=== PATIENT | female | born 1945 | race Caucasian/White ===

== ENCOUNTER → 2016-09-26 | Outpatient (CLI) | payer OTHER | LOC: FIMAGING 13:49 | DX: Z12.31 Encounter for screening mammogram for malignant neoplasm of breast (principal) | CPT/HCPCS: G0202 ==

== ENCOUNTER → 2017-10-26 | Outpatient (CLI) | payer OTHER | LOC: FIMAGING 12:00 | PROVIDERS: ATTEND Internal Medicine | DX: Z12.31 Encounter for screening mammogram for malignant neoplasm of breast (principal) ==

== ENCOUNTER 2018-05-09 14:41 | Emergency (ER) | payer OTHER ==
[2018-05-09] MEDS ORDERED: diphenhydrAMINE 12.5 MG/5 ML UDCUP PO ONE (15:21)
[2018-05-09] MEDS ORDERED: diphenhydrAMINE 25 MG CAP PO ONE (15:22)
--- NOTE | 2018-05-09 16:40 | EDPHY ---
H & P Stated Complaint: hives started 2 days ago--lip tingling x 1 hour just started pred Time Seen by Provider: 05/09/18 15:50 HPI/ROS: CHIEF COMPLAINT: Facial swelling HISTORY OF PRESENT ILLNESS: 72-year-old female presents with facial swelling. Onset hives on her torso 2 days ago. She took Benadryl with some relief. However the hives recurred yesterday and she took Benadryl again. Today she saw her physician for ongoing allergic reaction. Prednisone prescribed. Immediately after taking prednisone, she developed swelling of her lips and eyelids. She took Benadryl in triage and now feels back to normal. No shortness of breath or dizziness. No prior history of similar allergic reaction. No known new foods and no new detergents or soaps. REVIEW OF SYSTEMS: complete 10 point ROS reviewed and is negative except for the noted elements in the HPI - Personal History Current Tetanus/Diphtheria Vaccine: Unsure Current Tetanus Diphtheria and Acellular Pertussis (TDAP): Unsure - Medical/Surgical History Hx Asthma: No Hx Chronic Respiratory Disease: No Hx Diabetes: No Hx Cardiac Disease: Yes Hx Renal Disease: No Hx Cirrhosis: No Hx Alcoholism: No Hx HIV/AIDS: No Hx Splenectomy or Spleen Trauma: No Other PMH: pmh- PVC's, A-Fib - Social History Smoking Status: Never smoked - Physical Exam Exam: General Appearance: Alert, pleasant and talkative Eyes: Pupils equal and round, no periorbital swelling ENT, Mouth: Mucous membranes moist, no oral swelling Neck: Normal inspection, no stridor Respiratory: Lungs are clear to auscultation, no wheezing Cardiovascular: Regular rate and rhythm Neurological: A&O, nonfocal, normal gait Skin: Few scattered hives on torso Extremities: No swelling Psychiatric: Mood and affect normal Constitutional: Initial Vital Signs Temperature (C) 36.7 C 05/09/18 14:51 Respiratory Rate 112 H 05/09/18 14:51 Blood Pressure 139/92 H 05/09/18 14:51 O2 Sat (%) 98 05/09/18 14:51 O2 Delivery Mode Room Air Allergies/Adverse Reactions: adhesive Allergy (Verified 12/10/14 07:21) Sulfa (Sulfonamide Antibiotics) Allergy (Verified 12/10/14 07:21) Home Medications: Medication Instructions Recorded Aspirin EC 05/09/18 EPINEPHrine [Epipen 0.3 MG] 0.3 mg IM ONCE #2 syr 05/09/18 predniSONE 05/09/18 Medical Decision Making ED Course/Re-evaluation: This patient presents with anaphylaxis, now better after Benadryl and prednisone. She has taken prednisone several times in the past without allergic reaction. She does not think that prednisone cause the lip swelling today, though she understands that given the timing of the onset of swelling, prednisone may have caused the swelling. Fortunately her symptoms have now resolved. She does not need treatment in the emergency department. She was given a prescription for an EpiPen and instructions on how to use it. She will return for recurrent lip swelling or any concerns. Differential Diagnosis: Differential diagnosis includes though it is not limited to laryngeal edema, bronchospasm, hypotension, angioedema. - Data Points Medications Given: Discontinued Medications Diphenhydramine HCl (Benadryl Oral Liquid) 50 mg PO EDNOW ONE Stop: 05/09/18 15:22 Last Admin: 05/09/18 15:25 Dose: 50 mg Departure - Departure Disposition: Home, Routine, Self-Care Clinical Impression: Acute anaphylaxis Qualifiers: Encounter type: initial encounter Qualified Code(s): T78.2XXA - Anaphylactic shock, unspecified, initial encounter Condition: Good Instructions: Anaphylaxis (ED) Additional Instructions: Take Claritin or Zyrtec in the morning and Benadryl at night while the rash persists. Take prednisone as prescribed. If the facial swelling recurs, use the EpiPen as directed. Return for worsening symptoms or any concerns. Referrals: Julieta Avelar MD [Primary Care Provider] - As per Instructions Prescriptions: EPINEPHrine [Epipen 0.3 MG] 0.3 mg IM ONCE #2 syr
[2018-05-09 17:09] VITALS: BP 142/92
== END 2018-05-09 17:09 | disposition home or self-care (01) ==
DX: M79.89 Other specified soft tissue disorders (principal); T78.2XXA Anaphylactic shock, unspecified, initial encounter

== ENCOUNTER → 2018-06-14 | Outpatient (CLI) | payer OTHER | LOC: BMCIMAGING 12:09 | PROVIDERS: ATTEND Nurse Practitioner Adult Health | DX: R05 Cough (principal) ==